=== PATIENT | female | born 1955 | race Asian ===

== ENCOUNTER → 2019-12-10 | Outpatient (CLI) | payer BC ==
[~2019-12-10] MED LIST: BARIUM SULFATE 450ML ORAL SUSP ONE; IOHEXOL-300 100 ML BOTTLE ONE
== END | disposition home or self-care (01) ==
LOC: CT 07:02
PROVIDERS: ATTEND Internal Medicine Gastroenterology
DX: R10.32 Left lower quadrant pain (principal); R10.13 Epigastric pain
CPT/HCPCS: 74178; Q9967; Z7610